=== PATIENT | female | born 1935 ===

== ENCOUNTER 2016-12-22 07:28 | Day surgery (SDC) | payer MEDICARE ==
[2016-12-16 08:24] VITALS: BMI 23.3
[~2016-12-22 07:28] MED LIST: Ciprofloxacin 0.3% OPTH SOLN OD SCH; Cyclopentolate 1% Opth (2 ml) OD SCH; Flurbiprofen 0.03% Opht SOLN OD SCH; Lactated Ringer's 500 ML IV ONE; Phenylephrine 2.5% Opht Soln OD SCH; Tropicamide 1% Opht SOLUTION OD SCH
[2016-12-22] MEDS ORDERED: Tobramycin/Dexamethasone (Tobradex) Opth Sol (2.5 ml) ONE (07:35)
[2016-12-22] MEDS: Carbachol 0.01% IO ONE ×2 (08:18→10:48)
[2016-12-22] MEDS: Chondroitin/Hyaluronate Opth Syringe KIT (0.55 ml-0.5 ml) IO ONE ×2 (08:18→10:48)
[2016-12-22] MEDS: Lidocaine 2% Inj (20ml) ONE ×2 (08:19→10:43)
[2016-12-22] MEDS: Hyaluronidase Human, Recombi 150 U/ML VIAL ONE ×2 (08:19→10:43)
[2016-12-22] MEDS: Povidone Iodine Ophthalmic 5% Soln ONE ×2 (08:20→10:46)
[2016-12-22] MEDS: Tetracaine 0.5% Ophth (OR ONLY) ONE ×2 (08:20→10:43)
[2016-12-22] MEDS: Tobramycin/Dexamethasone OPHT OINT ONE ×2 (08:21→11:01)
[2016-12-22] MEDS ORDERED: Lactated Ringer's 1,000 ML IV ONE (09:30)
[2016-12-22] MEDS ORDERED: Lidocaine Hydrochloride 5 ML INJ ONE (10:36)
[2016-12-22] MEDS ORDERED: Propofol 10 mg/ml Inj (20 ML) ONE (10:36)
[2016-12-22 11:28] VITALS: RESP 18; TEMP 96.1; O2SAT 100
[2016-12-22 11:36] VITALS: BP 137/62; PULSE 66
--- NOTE | 2016-12-22 17:00 | OP ---
PROCEDURE DATE: 12/22/2016 PREOPERATIVE DIAGNOSIS: CATARACT RIGHT EYE. POSTOPERATIVE DIAGNOSIS: CATARACT RIGHT EYE. OPERATIVE PROCEDURE: CATARACT EXTRACTION WITH IMPLANT RIGHT EYE. ANESTHESIA TYPE: LOCAL, STAND-BY. ANESTHESIOLOGIST: COMPLICATIONS: NONE. PROCEDURE: Local anesthesia was achieved using a mixture of 1% lidocaine and Amphadase. The patient was then prepped and draped in the usual sterile fashion for ophthalmic surgery. Betadin e drops were placed into the eye. A lid speculum was used and a sideport incision was made using a 1 5 degree blade. Viscoelastic was used to fill the anterior chamber and a 2.7 millimeter slit blade w as used to create a surgical opening. Additional viscoelastic was placed into the eye and a capsulor rhexis was performed. Hydrodissection and delineation were then carried out. Phacoemulsification of the nucleus was performed with ease and cortical cleanup was achieved without difficulty. The capsul ar bag was refilled using viscoelastic and a posterior chamber lens was inserted through the existing wound and placed into the capsular bag and easily centered. All viscoelastic was then aspirated from the eye and Miochol was instilled for good symmetric pupilla ry constriction. The sideport wound was hydrated as necessary and a good watertight closure was obse rved at the conclusion of the case. A TobraDex soaked collagen shield was then placed over the eye. The lid speculum was removed. TobraDex ointment was placed onto the eye and a patch and shield were placed. The patient tolerated the procedure well. Ga Brantley MD cc: [id number] TT: 12/22/2016 16:59:09 rojas
== END 2016-12-22 11:36 | disposition home or self-care (01) ==
LOC: C.SDS 07:28
PROVIDERS: ATTEND Ophthalmology
DX: H26.9 Unspecified cataract (principal)
CPT/HCPCS: 66984; C1780; J2704; J3470; J7120

== ENCOUNTER 2017-12-22 14:41 | Emergency (ER) | payer MEDICARE ==
[2017-12-22 14:41] VITALS: BMI 23.7
[2017-12-22 14:48] VITALS: RESP 18
[2017-12-22] MEDS ORDERED: Sodium Chloride 0.9% 1,000 ML ONE (16:26)
[2017-12-22] MEDS: Sodium Chloride 0.9% 500 ML IV ONE (16:40)
[2017-12-22 16:44] LABS: BASO # 0.1 K/uL (0.0-0.2); BASO % 0.6 % (0.0-2.0); EOS # 0.3 K/uL (0.0-0.7); EOS % 3.2 % (0.0-4.0); HEMOGLOBIN 15.2 g/dL (11.0-16.0); LYMPH # 1.6 K/uL (1.0-4.3); LYMPH % 16.3 % (20.0-40.0); MEAN CELL VOLUME 97.5 fL (81.0-99.0); MEAN CORPUSCULAR HEMOGLOBIN 33.2 pg (27.0-31.0); MONO # 1.2 K/uL (0.0-0.8); MONO % 11.7 % (0.0-10.0); NEUT # 6.8 K/uL (1.8-7.0); NEUT % 68.2 % (50.0-75.0); RBC 4.58 Mil/uL (3.80-5.20); RED CELL DISTRIBUTION WIDTH 13.7 % (11.5-14.5)
[2017-12-22 16:55] LABS: SQUAMOUS EPITHIAL 1 /hpf (0-5); URINE BILIRUBIN NEGATIVE (NEGATIVE); URINE BLOOD NEGATIVE (NEGATIVE); URINE CLARITY Hazy (Clear); URINE COLOR Yellow (YELLOW); URINE GLUCOSE (UA) NORMAL (Normal); URINE LEUKOCYTE ESTERASE NEG Leu/uL (Negative); URINE PROTEIN NEGATIVE (NEGATIVE); URINE UROBILINOGEN NORMAL mg/dL (0.2-1.0)
[2017-12-22 16:58] LABS: ALB/GLOB RATIO 1.4 (1.0-2.1); ALBUMIN 4.4 g/dL (3.5-5.0); ALT/SGPT 20 U/L (9-52); AST/SGOT 44 U/L (14-36); BLOOD UREA NITROGEN 22 mg/dL (7-17); GFR AFRICAN-AMERICAN > 60; GFR NON-AFRICAN AMERICAN 53
--- NOTE | 2017-12-22 17:32 | RAD ---
PROCEDURE: Radiographs of the chest and abdomen (obstructive series) HISTORY: constipation COMPARISON: No prior. TECHNIQUE: AP radiograph of the chest, with upright and supine radiographs of the abdomen. FINDINGS: CHEST: Lungs: Clear. Cardiovascular: Normal size heart. No pulmonary vascular congestion. Pleura: No pleural fluid. No pneumothorax. Other findings: None. ABDOMEN AND PELVIS: Bowel: Unremarkable bowel gas pattern. No evidence of mechanical obstruction. Free air: None. Bones: Unremarkable. Other findings: Surgical clips in right upper quadrant status post cholecystectomy. IMPRESSION: Unremarkable radiographs of chest and abdomen. No evidence of mechanical bowel obstruction.
[2017-12-22] MEDS: Magnesium Citrate Oral SOL (300 ml) PO ONE (17:52)
[2017-12-22] MEDS ORDERED: Magnesium Citrate Oral SOL (300 ml) ONE (17:53)
--- NOTE | 2017-12-22 17:54 | C.PDOC ---
History Of Present Illness 82-year-old female, presents to the emergency department with complaints of constipation x1 week. Patient is having watery stools for that amount of time. States she was seen in ER before for this, and she was given an enema which helped. She denies abdominal pain, fever or vomiting. Patient has a hx of abdominal surgery. Time Seen by Provider: 12/22/17 15:51 Chief Complaint (Nursing): GI Problem History Per: Patient History/Exam Limitations: no limitations Past Medical History Reviewed: Historical Data, Nursing Documentation, Vital Signs Vital Signs: Last Vital Signs Temp 98.2 F 12/22/17 14:45 Pulse 67 12/22/17 14:45 Resp 18 12/22/17 14:45 BP 108/70 12/22/17 14:45 Pulse Ox 95 12/22/17 17:57 - Medical History PMH: Anxiety, Arthritis, Diabetes, HTN, Hypercholesterolemia, Osteoporosis Surgical History: Cholecystectomy - [facility] Procedures COLONOSCOPY (02/14/15) OTHER SKIN & SUBQ I D (04/23/15) Family History: States: No Known Family Hx - Social History Hx Alcohol Use: No Hx Substance Use: No - Immunization History Hx Tetanus Toxoid Vaccination: No Hx Influenza Vaccination: No Hx Pneumococcal Vaccination: No Review Of Systems Constitutional: Negative for: Fever, Chills Respiratory: Negative for: Shortness of Breath Gastrointestinal: Positive for: Diarrhea. Negative for: Vomiting, Abdominal Pain Musculoskeletal: Negative for: Back Pain Neurological: Negative for: Weakness, Numbness Physical Exam - Physical Exam Appears: Non-toxic, No Acute Distress Skin: Normal Color, Warm, Dry, No Rash Head: Normacephalic Eye(s): bilateral: PERRL Nose: Normal Oral Mucosa: Moist Lips: Normal Appearing Neck: Normal ROM Cardiovascular: Rhythm Regular, No Murmur Respiratory: Normal Breath Sounds, No Accessory Muscle Use Gastrointestinal/Abdominal: Soft, No Tenderness Extremity: Normal ROM, No Deformity, No Swelling Neurological/Psych: Oriented x3, Normal Speech ED Course And Treatment - Laboratory Results Result Diagrams: 12/22/17 16:36 12/22/17 16:36 O2 Sat by Pulse Oximetry: 95 (RA) Pulse Ox Interpretation: Normal Progress Note: Bloodwork and UA ordered and reviewed. Pt treated with Mag Citrate, Colace and IVFs. Disposition Counseled Patient/Family Regarding: Studies Performed, Diagnosis, Need For Followup, Rx Given - Disposition Referrals: Jeovany Velazquez MD [Staff Provider] - Disposition: HOME/ ROUTINE Disposition Time: 18:20 Condition: STABLE Additional Instructions: FOLLOW UP WITH YOUR DOCTOR/CLINIC IN 1-2 DAYS DRINK PLENTY OF WATER AND INCREASE FIBER IN YOUR DIET RETURN TO EMERGENCY ROOM IF SYMPTOMS WORSEN USE MEDICATION DIRECTED SEGUIMIENTO CON RIZO MDICO / CLNICA EN 1-2 JOHNSON SAMUEL ABUNDANTE AGUA E INCREMENTA LA FIBRA EN RIZO DIETA REGRESE AL JOSH DE EMERGENCIA SI LOS SNTOMAS EMPEORAN USE MEDICAMENTOS SEGN SE INDICA Prescriptions: Docusate [Colace] 100 mg PO DAILY #30 cap Magnesium Citrate [Citrate of Mag] 300 ml PO ONCE PRN #1 bottle PRN Reason: Constipation Instructions: Constipation, Child (DC), High Fiber Diet Forms: OneTouch (French) Print Language: TAIWANESE - Clinical Impression Clinical Impression: Constipation - Scribe Statement The provider has reviewed the documentation as recorded by the Scribe (Esther Hernandez) Provider Attestation: All medical record entries made by the Scribe were at my direction and personally dictated by me. I have reviewed the chart and agree that the record accurately reflects my personal performance of the history, physical exam, medical decision making, and the department course for this patient. I have also personally directed, reviewed, and agree with the discharge instructions and disposition.
[2017-12-22 18:31] VITALS: BP 131/75; PULSE 65; TEMP 97.5; O2SAT 98
== END 2017-12-22 18:34 | disposition home or self-care (01) ==
LOC: C.ER 14:41
DX: K59.00 Constipation, unspecified (principal)
CPT/HCPCS: 74022; 80053; 81001; 85025; 96360; 99284; J7040